=== PATIENT | male | born 1965 | race African-American/Black ===

== ENCOUNTER 2023-07-29 15:01 | Outpatient (AMB) | payer BC, SELFPAY ==
--- NOTE | 2023-07-29 15:10 | A.OFFVIS_ITS ---
Vital Signs 3 07/29/23 15:12 Height 5 ft 9.5 in Weight 229 lb 6 oz BMI 33.4 BP 118/70 Blood Pressure Location Lt brachial Position Sitting Pulse 63 Pulse Source Pulse Oximeter Pulse Oximetry (%) 98 Oxygen Delivery Method Room Air Intake Visit Reasons: Abnormal CT scan Allergies No Known Allergies Allergy (Verified 07/29/23 15:18) HPI HPI Abnormal CT scan: Details: Deonte is a pleasant 57 year old male, less than 5 pack year history, quit 21 years with underlying seasonal allergies on flonase and HTN. He was referred for pulmonary evaluation after abnormal CT findings. He underwent a cervical fusion about 6 weeks ago and began to develop a productive cough with clear to white sputum postoperatively and sent for chest CT. Imaging revealed two pulmonary nodules of the RML, 8 mm in size, as well as mediastinal and hilar lymphadenopathy. He denies prior imaging. He denies any dyspnea, wheezing or chest tightness. He denies any underlying autoimmune condition or family history. He denies any skin lesions or joint pain. He denies any fevers, chills or weight loss. He denies any history of asthma. He denies any occupational exposures. [facility] Social History (Updated 07/29/23 @ 15:22 by Honey Moncada [facility]) Patient Tobacco Use Status: Former Tobacco user Quit Date: 21 years ago Tobacco use type: Cigarette Second Hand Smoke Exposure: No Review of Systems Const Denies chills, Denies excessive sweating, Denies fever(s), Denies headache(s) and Denies night sweats Eyes Denies dry eyes, Denies irritation and Denies itchy eyes ENT Reports Normal hearing present, Denies headache(s), Denies nasal congestion, Denies nasal discharge, Denies post nasal drip and Denies sore throat Card Denies chest pain, Denies chest pain at rest, Denies chest pain with activity, Denies claudication, Denies leg edema, Denies dyspnea, Denies dyspnea on exertion, Denies orthopnea and Denies paroxysmal nocturnal dyspnea Resp Denies chest congestion, Denies excessive phlegm production, Denies pain on inspiration, Denies pain with cough, Denies dyspnea, Denies dyspnea on exertion, Denies stridor and Denies wheezing Musc Denies myalgias Neuro Reports Normal hearing present and Denies headache(s) Endo Denies excessive sweating Calin/Lymph Denies lymphadenopathy Aller/Immun Denies itchy eyes, Denies seasonal rhinorrhea and Denies wheezing Physical Exam Vital Signs: Last Vital Signs Pulse 63 07/29/23 15:12 BP 118/70 07/29/23 15:12 Pulse Ox 98 07/29/23 15:12 Oxygen Delivery Method Room Air 07/29/23 15:12 BMI result Body Mass Index 33.4 Const General: cooperative, healthy appearing, comfortable, no acute distress, well developed and alert Orientation/consciousness: patient oriented x3 Limitations: no limitations HEENT Head: Yes normal to inspection, Yes normocephalic and Yes atraumatic Ears: hearing grossly normal bilaterally and external ears normal Eyes General: appearance normal, both eyes and all related structures Eyelids: Yes eyelids normal Sclerae: sclerae normal EOM: EOMs intact bilaterally Neck Neck: Yes normal visual inspection and Yes no lymphadenopathy Lymphatic: no lymphadenopathy noted Chest Chest palpation & inspection: normal inspection of the chest Resp Effort & Inspection: normal respiratory effort, able to speak in complete sentences, no audible wheezes, no cough, no stridor, not tachypneic, no tripod positioning and no use of accessory muscles Auscultation: clear to auscultation bilaterally Cardio Jugular venous distension: no JVD Rate: regular rate Rhythm: regular rhythm Skin Other: warm, dry General skin exam: no rashes or lesions noted Neuro General: patient oriented x3 Cranial nerves: Yes Normal hearing present Cognition (Neuro): normal cognition Gait exam (Neuro): Normal gait present Extrem General: Yes normal to inspection, Yes capillary refill normal, Yes no clubbing, cyanosis or edema and Yes no pedal edema Psych Appearance: grossly normal and well kempt Speech and movement: Normal speech and movement present and Clear speech present Affect: normal affect Attitude: cooperative Thought process: Normal thought process present Thought content: Normal thought content present Insight: Good insight present (Psych) Judgement: Good judgement present (Psych) Results Reviewed Results Reviewed: Assessment & Plan Assessment & Plan (1) Mediastinal lymphadenopathy: Code(s): R59.0 - Localized enlarged lymph nodes Category: Medical (2) Multiple pulmonary nodules: Code(s): R91.8 - Other nonspecific abnormal finding of lung field Category: Medical (3) Cough: Code(s): R05.9 - Cough, unspecified Category: Medical Plan Deonte presents for evaluation after abnormal chest CT revealed two pulmonary nodules 8 mm in size on the RML as well as significant mediastinal and hilar lymphadenopathy. Recommendations were made for short term follow up and per referral will have a follow up CT ordered by PCP in 4 months. Will obtain actual images and review at our multidisciplinary conference on Tuesday, then discuss further recommendations with patient. Will also send for PFT to assess for any obstructive defect contributing to cough. All questions were answered and patient is in agreement of plan. Orders: Orders 2 PFT pulmonary function test Today R05.9 - Cough, unspecified Coding Level of Care Code New Pt Level 3 (02150) Diagnoses Mediastinal lymphadenopathy R59.0 Multiple pulmonary nodules R91.8 Cough R05.9
[2023-07-29 15:12] VITALS: BP 118/70; PULSE 63; O2SAT 98; BMI 33.4
== END 2023-07-29 15:36 | disposition home or self-care (01) ==
PROVIDERS: PCP Internal Medicine; Visit Provider Nurse Practitioner Family
DX: R59.0 Localized enlarged lymph nodes (principal); R91.8 Other nonspecific abnormal finding of lung field; R05.9 Cough, unspecified
CPT/HCPCS: 99203

== ENCOUNTER → 2023-07-29 15:01 | Outpatient (BNVA) | payer BC, SELFPAY | PROVIDERS: PCP Internal Medicine; Visit Provider Nurse Practitioner Family ==

== ENCOUNTER 2023-08-09 10:32 | Outpatient (REF) | payer BC, SELFPAY | END 2023-08-09 10:33 | disposition home or self-care (01) | LOC: CF 10:32 | DX: Z13.89 Encounter for screening for other disorder (principal) ==